=== PATIENT | male | born 1955 | race Hispanic/Latino ===

== ENCOUNTER → 2022-05-16 | Outpatient (CLI) | payer OTHER | END | disposition home or self-care (01) | LOC: SHCH 09:38 | PROVIDERS: ATTEND Internal Medicine Cardiovascular Disease | DX: I71.4 Abdominal aortic aneurysm, without rupture (principal) | CPT/HCPCS: 93978 ==

== ENCOUNTER → 2025-08-13 | Outpatient (CLI) | payer OTHER ==
[~2025-08-13] MED LIST: IOHEXOL 350 MG/ML 100ML INFUS..BTL IV ONE
--- NOTE | 2025-08-14 11:37 | HMCIMG ---
CTA ABDOMEN AND PELVIS WITH AND WITHOUT IV CONTRAST; 08/13/2025 9:27 AM MDT INDICATION: Abdominal aortic aneurysm without rupture COMPARISON: None available TECHNIQUE: Axial 3-mm and 0.75-mm contiguous slices from the lower thorax to the proximal pelvic iliac with 2-D postprocessing coronal and sagittal reformations. Total CTDIvol: 61.90 mGy. Total DLP: 2347.80 mGy-cm Automated Exposure Control was used to reduce patient radiation dose FINDINGS: [employer] Specialist View: Negative for acute findings There is calcification of the aortic root.. Visualized heart within normal limits. . Visualized ribs are normal. The lungs demonstrate occasional scattered bulla. There is no evidence of any pericardial or pleural effusion. No evidence of free intraabdominal air. Abdominal Vasculature: There is distal abdominal aorta aneurysmal dilatation the widest diameter is approximately 3.6 x 3.2 cm. There is a rind of thrombus surrounding it. There is diffuse atherosclerotic changes abdominal aorta and iliac vessels with calcified plaque... Celiac, superior/inferior mesenteric, renal, iliac or femoral branches. IVC appears normal. Liver: Liver contours are normal. No focal liver lesions are present. No evidence of intrahepatic or extrahepatic biliary dilation. Splenic, Mesenteric and Portal veins: Patent. Gallbladder: Normal CBD: Normal Pancreas: Normal. Spleen: Normal. Kidneys: The right kidney has a nonobstructing calculus seen in the mid to lower pole. There is no evidence of any obstructive uropathy or mass seen in either kidneys. Adrenal glands: Normal. Esophagus: Normal. Stomach: Normal. Duodenum, Small Bowel: Normal. Large Bowel: Normal. Appendix: Normal. Mesenteric and peritoneal surfaces: Normal. Lymph nodes: No evidence of retroperitoneal lymphadenopathy or significant mesenteric lymphadenopathy. PELVIS: No free fluid is seen in the pelvis. Urinary bladder: Multilevel compression fracture involving grade 2 of T12 and at L1 and L2 grade 2 fracture There is osteopenia of the osseous structure.: There is disc disease with loss of disc height at L5-S1.. Bony Pelvis: Normal. . Lower thoracic and lumbar spine : Normal Soft tissues: Normal. IMPRESSION: 1. There is aneurysmal dilatation of the distal abdominal aorta measuring 3.5 x 3.2 cm. There is a rind of thrombus surrounding the aneurysm.. 2. No evidence of acute intraabdominal or intrapelvic process. 3. Calcified and non-calcified atherosclerotic plaque formations of the aorta and descending branches. 4. There are multilevel compression fracture of T12-L1 and L2 which is amenable for vertebral body augmentation which can be performed by me
== END | disposition home or self-care (01) ==
LOC: RAH 09:06
PROVIDERS: ATTEND Internal Medicine Cardiovascular Disease
DX: I71.40 Abdominal aortic aneurysm, without rupture, unspecified (principal); N20.0 Calculus of kidney; I70.0 Atherosclerosis of aorta; M48.55XA Collapsed vertebra, not elsewhere classified, thoracolumbar region, initial encounter for fracture; I74.09 Other arterial embolism and thrombosis of abdominal aorta; M85.88 Other specified disorders of bone density and structure, other site
CPT/HCPCS: 74174; Q9967